=== PATIENT | male | born 1945 | race Caucasian/White ===

== ENCOUNTER 2018-04-02 12:16 | Emergency (ER) | payer OTHER ==
--- NOTE | 2018-04-02 12:44 | EDPHY ---
H & P Time Seen by Provider: 04/02/18 12:31 HPI/ROS: CHIEF COMPLAINT: slow speech and leaning to the left HISTORY OF PRESENT ILLNESS: Patient has had neck pain bilateral posterior occipital area for the last 3 months and he saw Orthopedics today. He was told that is he should go to physical therapy, but was sent here for evaluation of possible stroke symptoms. Though the spouse says that he has had slower speech since Friday night of this week, and moving more slowly than usual. He is leaning a little bit to the left. She describes slow mostly and not really slurred speech but he thinks his speech is normal now. Also a little bit of trouble with recent memory and naming objects. Denies headache or double vision, incontinence, visual symptoms, facial asymmetry. REVIEW OF SYSTEMS: Eye: no change in vision ENT: no sore throat Cardiac: no chest pain or syncope Pulmonary: no cough or SOB Abdomen: no vomiting, diarrhea, abdominal pain Musculoskeletal: HPI Skin: no rash Neuro: HPI Constitutional: no fever : no urinary symptoms A comprehensive 10 point review of systems is otherwise negative aside from elements mentioned in the history of present illness. PAST MEDICAL HISTORY: Includes depression just started Carbatrol 1 week ago, hypertension, enlarged prostate. Social history: Frequent alcohol but none in the last 24 hr General Appearance: Alert and conversant, cooperative. Eyes: No scleral icterus. Pupils equal reactive extraocular motion intact. ENT, Mouth: Normal mucous membranes. Respiratory: Normal respiratory effort, breath sounds equal, lungs are clear to auscultation. Cardiovascular: Regular rate and rhythm. Gastrointestinal: Abdomen is soft and non tender. Neurological: Alert, face symmetric, normal naming of pen and eyeglasses. Follows commands. Romberg negative. Normal strength in all 4 extremities, difficulty with tandem gait but can do it. Normal [id number] and no pronator drift. Speech is fluent on my evaluation. Skin: Warm and dry, no rashes. Musculoskeletal: No peripheral edema. Psychiatric: Not agitated. Emergency Department course/MDM: Plan for stroke workup with CT and CTA, carbamazepine level, EKG and screening labs. Not a stroke alert as last described known normal is more than 24 hr ago. 1435: Results discussed with patient and , I think the most reasonable explanation is mild carbamazepine toxicity. He took it once today and will not take further dosing without further discussing with his psychiatrist. Patient and his family feel comfortable being discharged, he does not feel that his symptoms are disabling or cause him to be a fall risk at home. Smoking Status: Never smoked Constitutional: Initial Vital Signs Temperature (C) 36.8 C 04/02/18 12:26 Heart Rate 78 04/02/18 12:26 Respiratory Rate 18 04/02/18 12:26 Blood Pressure 140/77 H 04/02/18 12:26 O2 Sat (%) 93 04/02/18 12:26 O2 Delivery Mode Room Air Allergies/Adverse Reactions: succinylcholine [Succinylcholine] Allergy (Verified 04/02/18 12:24) prolonged paralysis Home Medications: Medication Instructions Recorded Lisinopril [Zestril 5 mg (RX)] 5 mg PO HS 02/26/13 Olanzapine/Fluoxetine HCl [Symbyax 1 each PO HS 02/26/13 12-25 mg Capsule] Adderall 10 MG (*) 04/02/18 Aspirin 81mg (*) 04/02/18 Flomax 04/02/18 Nuvigil 04/02/18 Valium 04/02/18 Medical Decision Making - Diagnostics EKG Interpretation: 12-lead EKG interpreted by me; official reading is in trace master. My interpretation is sinus rhythm with right bundle branch block and left anterior fascicular block rate 72. Imaging Results: Imaging Impressions Head CT 04/02/18 13:33 Impression: 1. Mild atrophy. 2. No acute hemorrhage, hydrocephalus, or mass effect. 3. Cerebrovascular atherosclerosis. 4. No definite acute infarct. 5. Moderate to severe microvascular ischemic gliosis. 6. Consider MRI of the brain, if there is continued clinical concern. Findings and recommendations discussed with Emergency Department physician, HARIS CARRERA at 14:13 hour, 04/02/2018. Final report concurs with initial preliminary interpretation. Head CTA 04/02/18 13:33 Impression: 1. No carotid atherosclerotic disease. 2. No carotid or vertebral flow-limiting stenosis, occlusion or dissection. Measurement of carotid stenosis is based on the residual internal carotid diameter with [place] Symptomatic Carotid Endarterectomy Trial (NASCET) based stenosis levels. CT Angiogram of the Brain Clinical Indications: Confusion, speech difficulty. Technique: CT angiogram of the brain and neck was performed with the uneventful intravenous administration of 89 mL Isovue-370 contrast. Multiplanar reconstructions including 3D reconstructions performed and evaluated on Vitrea workstation in order to better evaluate the [place] vessels. Images were manipulated by the radiologist at the computer workstation. Dose reduction techniques were utilized. Findings: Major vessels of the [place] are adequately displayed, demonstrating no evidence of aneurysm, vascular malformation, flow-limiting stenosis, or occlusion. Bilateral cavernous internal carotid arteries and vertebrobasilar system demonstrates no evidence of flow-limiting stenosis, aneurysm, occlusion, or dissection. Superior sagittal sinus, transverse sinuses , and major veins demonstrate no evidence of intraluminal thrombi. Impression: Negative CT angiogram of the brain. Findings and recommendations discussed with Emergency Department physician, Dr. Haris Carrera at 1416 hours on April 02, 2018. Final report concurs with initial preliminary interpretation. Neck CTA 04/02/18 13:33 Impression: 1. No carotid atherosclerotic disease. 2. No carotid or vertebral flow-limiting stenosis, occlusion or dissection. Measurement of carotid stenosis is based on the residual internal carotid diameter with [place] Symptomatic Carotid Endarterectomy Trial (NASCET) based stenosis levels. CT Angiogram of the Brain Clinical Indications: Confusion, speech difficulty. Technique: CT angiogram of the brain and neck was performed with the uneventful intravenous administration of 89 mL Isovue-370 contrast. Multiplanar reconstructions including 3D reconstructions performed and evaluated on Vitrea workstation in order to better evaluate the [place] vessels. Images were manipulated by the radiologist at the computer workstation. Dose reduction techniques were utilized. Findings: Major vessels of the [place] are adequately displayed, demonstrating no evidence of aneurysm, vascular malformation, flow-limiting stenosis, or occlusion. Bilateral cavernous internal carotid arteries and vertebrobasilar system demonstrates no evidence of flow-limiting stenosis, aneurysm, occlusion, or dissection. Superior sagittal sinus, transverse sinuses , and major veins demonstrate no evidence of intraluminal thrombi. Impression: Negative CT angiogram of the brain. Findings and recommendations discussed with Emergency Department physician, Dr. Haris Carrera at 1416 hours on April 02, 2018. Final report concurs with initial preliminary interpretation. Imaging: Discussed imaging studies w/ order caller Radiologist Differential Diagnosis: Differential considered including but not limited to stroke, metabolic, medication toxicity, primary orthopedic problem. - Data Points Laboratory Results: Laboratory Results 04/02/18 13:02 04/02/18 13:02 04/02/18 04/02/18 04/02/18 13:21 13:17 13:02 WBC RBC Hgb POC Hgb 14.6 gm/dL gm/dL (13.7-17.5) Hct POC Hct 43 % % (40-51) MCV MCH MCHC RDW Plt Count MPV Neut % (Auto) Lymph % (Auto) [place] % (Auto) Eos % (Auto) Baso % (Auto) Nucleat RBC Rel Count Absolute Neuts (auto) Absolute Lymphs (auto) Absolute Monos (auto) Absolute Eos (auto) Absolute Basos (auto) Absolute Nucleated RBC Immature Gran % Immature Gran # PT INR POC Sodium 141 mEq/L mEq/L (135-145) Sodium 142 mEq/L mEq/L (135-145) POC Potassium 3.9 mEq/L mEq/L (3.3-5.0) Potassium 4.1 mEq/L mEq/L (3.3-5.0) POC Chloride 103 mEq/L mEq/L (97-110) Chloride 105 mEq/L mEq/L (97-110) Carbon Dioxide 26 mEq/l mEq/l (22-31) Anion Gap 11 mEq/L mEq/L (8-16) POC BUN 17 mg/dL mg/dL (7-23) BUN 17 mg/dL mg/dL (7-23) Creatinine 0.9 mg/dL mg/dL (0.7-1.3) POC Creatinine 1.0 mg/dL mg/dL (0.7-1.3) Estimated GFR > 60 Glucose 86 mg/dL mg/dL (70-100) POC Glucose 89 mg/dL mg/dL (70-100) Calcium 9.5 mg/dL mg/dL (8.5-10.4) POC Troponin I 0.01 ng/mL ng/mL (0.00-0.08) Carbamazepine 12.10 ug/mL H ug/mL (4.0-12.0) 04/02/18 04/02/18 13:02 13:02 WBC 7.17 10^3/uL 10^3/uL (3.80-9.50) RBC 4.89 10^6/uL 10^6/uL (4.40-6.38) Hgb 15.5 g/dL g/dL (13.7-17.5) POC Hgb Hct 43.5 % % (40.0-51.0) POC Hct MCV 89.0 fL fL (81.5-99.8) MCH 31.7 pg pg (27.9-34.1) MCHC 35.6 g/dL g/dL (32.4-36.7) RDW 12.7 % % (11.5-15.2) Plt Count 183 10^3/uL 10^3/uL (150-400) MPV 9.6 fL fL (8.7-11.7) Neut % (Auto) 73.4 % % (39.3-74.2) Lymph % (Auto) 18.4 % % (15.0-45.0) [place] % (Auto) 6.7 % % (4.5-13.0) Eos % (Auto) 0.8 % % (0.6-7.6) Baso % (Auto) 0.6 % % (0.3-1.7) Nucleat RBC Rel Count 0.0 % % (0.0-0.2) Absolute Neuts (auto) 5.26 10^3/uL 10^3/uL (1.70-6.50) Absolute Lymphs (auto) 1.32 10^3/uL 10^3/uL (1.00-3.00) Absolute Monos (auto) 0.48 10^3/uL 10^3/uL (0.30-0.80) Absolute Eos (auto) 0.06 10^3/uL 10^3/uL (0.03-0.40) Absolute Basos (auto) 0.04 10^3/uL 10^3/uL (0.02-0.10) Absolute Nucleated RBC 0.00 10^3/uL 10^3/uL (0-0.01) Immature Gran % 0.1 % % (0.0-1.1) Immature Gran # 0.01 10^3/uL 10^3/uL (0.00-0.10) PT 13.3 SEC SEC (12.0-15.0) INR 0.99 (0.83-1.16) POC Sodium Sodium POC Potassium Potassium POC Chloride Chloride Carbon Dioxide Anion Gap POC BUN BUN Creatinine POC Creatinine Estimated GFR Glucose POC Glucose Calcium POC Troponin I Carbamazepine Point of Care Test Results: Chemistry 04/02/18 04/02/18 13:21 13:17 POC Sodium 141 mEq/L mEq/L (135-145) POC Potassium 3.9 mEq/L mEq/L (3.3-5.0) POC Chloride 103 mEq/L mEq/L (97-110) POC BUN 17 mg/dL mg/dL (7-23) POC Creatinine 1.0 mg/dL mg/dL (0.7-1.3) POC Glucose 89 mg/dL mg/dL (70-100) POC Troponin I 0.01 ng/mL ng/mL (0.00-0.08) ISTAT H&H 04/02/18 13:21 POC Hgb 14.6 gm/dL gm/dL (13.7-17.5) POC Hct 43 % % (40-51) Departure - Departure Disposition: Home, Routine, Self-Care Clinical Impression: Carbamazepine toxicity Qualifiers: Encounter type: initial encounter Injury intent: accidental or unintentional Qualified Code(s): T42.1X1A - Poisoning by iminostilbenes, accidental ( unintentional), initial encounter Condition: Good Instructions: Carbamazepine (By mouth) Additional Instructions: Your carbamazepine level was 12.1 with normal therapeutic being 4-12. Negative CT scan imaging. Please contact your psychiatrist today to discuss further dosing. Do not take additional carbamazepine today. Referrals: Sebastián Woody MD [Primary Care Provider] - As per Instructions
--- NOTE | 2018-04-02 12:55 | CPEKG ---
Heart Rate: 72 RR Interval: 833 P-R Interval: 144 QRSD Interval: 136 QT Interval: 392 QTC Interval: 430 P Cornell: 19 QRS Cornell: -43 T Wave Cornell: 3 EKG Severity - ABNORMAL ECG - EKG Impression: SINUS RHYTHM EKG Impression: RBBB AND LAFB Electronically Signed By: Daniel Bowers 02-Apr-2018 13:14:40
[2018-04-02 13:19] LABS: PLATELET COUNT 183 10^3/uL (150-400)
[2018-04-02 13:24] LABS: INR 0.99 (0.83-1.16); PROTIME(PATIENT) 13.3 SEC (12.0-15.0)
[2018-04-02] MEDS ORDERED: IOPAMIDOL (ISOVUE 370) 100 ML BTL IV ONE (13:41)
[2018-04-02 15:10] VITALS: BP 150/78
== END 2018-04-02 15:10 | disposition home or self-care (01) ==
DX: R47.81 Slurred speech (principal); T42.1X1A Poisoning by iminostilbenes, accidental (unintentional), initial encounter; I10 Essential (primary) hypertension; Z79.82 Long term (current) use of aspirin
CPT/HCPCS: 82435-PO; 82565-PO; 82947-PO; 84132-PO; 84295-PO; 84484-PO; 84520-PO; 85014-PO; Q9967

== ENCOUNTER → 2018-07-05 | Outpatient (CLI) | payer OTHER | LOC: FIMAGING 10:02 | PROVIDERS: ATTEND Physician Assistant Surgical | DX: M51.36 Other intervertebral disc degeneration, lumbar region (principal); M51.26 Other intervertebral disc displacement, lumbar region; M50.320 Other cervical disc degeneration, mid-cervical region, unspecified level; M41.86 Other forms of scoliosis, lumbar region; M50.322 Other cervical disc degeneration at C5-C6 level; M43.12 Spondylolisthesis, cervical region ==

== ENCOUNTER 2018-07-12 10:31 | Emergency (ER) | payer OTHER ==
--- NOTE | 2018-07-12 11:01 | EDPHY ---
H & P Stated Complaint: Lower back pain Time Seen by Provider: 07/12/18 11:01 HPI/ROS: CHIEF COMPLAINT: Back pain with radiculopathy HISTORY OF PRESENT ILLNESS: The patient is a 72 y/o male with a history of a back surgery 10 years ago arriving with his complaining of progressive low back pain over the last 3-4 months that is severe today. He had surgery for L4- L5 stenosis 10 years ago and has been managing okay until the last few months. This has continued to progress and he saw his neurosurgeon, who scheduled outpatient MRIs at [facility] on 07/09/18. That lumbar MRI showed stenosis, degenerative disc disease, facet hypertrophy. Pain is now much worse in his left hip and thigh and radiating down his leg. It is aggravated with certain positions. He's having difficulty functioning and is not sleeping at night due to 10/10 pain. He denies paresthesias or weakness apart from reluctance to use his left leg due to the pain. No incontinence. He is taking 800mg ibuprofen daily and using OTC topical ointments of some sort with no improvement. He is looking for pain management until he is able to see his neurosurgeon on Friday. REVIEW OF SYSTEMS: A ten system review of systems was performed and is negative with the exception of the items mentioned in the HPI. Past medical history: Pericarditis, back pain Past surgical history: Back surgery for L4-L5 stenosis Family history: Noncontributory Social history: at bedside. 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 Nonsmoker. Neurosurgeon - Dr. Granados General Appearance: Alert. Vital signs reviewed. Eyes: Pupils equal and round, no conjunctival injection, no discharge. Anicteric. ENT, Mouth: Mucous membranes are moist, no oropharyngeal erythema or edema. Neck: No lymphadenopathy, supple. Respiratory: Lungs are clear to auscultation; no wheezes, rales, or rhonchi. Cardiovascular: Regular rate and rhythm; no murmur, rub, or gallop. Gastrointestinal: Abdomen is soft and nontender, no masses or organomegaly. Skin: Warm and dry, no rashes on exposed skin, normal color. Back: Nontender to palpation over the thoracolumbar spine. No CVAT. Extremities: No lower extremity edema, no calf tenderness or swelling. Neurological: Alert and oriented. Moving all four extremities spontaneously. Face symmetric. Strength is 5 over 5 bilaterally with testing of all major motor groups of both lower extremities. Sensation is intact to light touch over both lower extremities. Deep tendon reflexes are 2+ in the knees bilaterally and absent in the ankles bilaterally. Gait is normal. - Personal History Current Tetanus/Diphtheria Vaccine: Yes - Medical/Surgical History Hx Asthma: No Hx Chronic Respiratory Disease: No Hx Diabetes: No Hx Cardiac Disease: Yes Hx Renal Disease: No Hx Cirrhosis: No Hx Alcoholism: No Hx HIV/AIDS: No Hx Splenectomy or Spleen Trauma: No Other PMH: pericarditis - Social History Smoking Status: Never smoked Constitutional: Initial Vital Signs Temperature (C) 36.7 C 07/12/18 10:36 Heart Rate 89 07/12/18 10:36 Respiratory Rate 18 07/12/18 10:36 Blood Pressure 137/81 H 07/12/18 10:36 O2 Sat (%) 95 07/12/18 10:36 O2 Delivery Mode Room Air Allergies/Adverse Reactions: succinylcholine [Succinylcholine] Allergy (Verified 07/12/18 10:39) prolonged paralysis Home Medications: Medication Instructions Recorded Lisinopril [Zestril 5 mg (RX)] 5 mg PO HS 02/26/13 Olanzapine/Fluoxetine HCl [Symbyax 1 each PO HS 02/26/13 12-25 mg Capsule] Adderall 10 MG (*) 04/02/18 Aspirin 81mg (*) 04/02/18 Flomax 04/02/18 Nuvigil 04/02/18 Valium 04/02/18 Hydrocodone/APAP 5/325 [[place] 1 - 2 tab PO Q4 PRN #10 tab 07/12/18 5/325 (RX)] Medical Decision Making ED Course/Re-evaluation: This is a 72 y/o male with a history of spinal stenosis and prior L4-L5 surgery who presents with a 3-4-month history of progressive back pain that is now radiating through his hip and thigh. He is unable to sleep due to pain and is seeking pain control until he can see his neurosurgeon in 2 days. Recent MRI 3 days ago showed spinal stenosis and DJD. He has a normal neurologic exam. Do not suspect acute cauda equina syndrome or infection. No indication for further imaging at this time. Presentation is consistent with lumbar radiculopathy. Plan for pain management with 15mg IV Toradol and 0.5mg IV Dilaudid. Reassessed patient. He is feeling improved. He will be discharged with script for B[place]roft in addition to ibuprofen instructions. He has refused steroids due to a prior poor reaction to prednisone. He will attempt to move up his neurosurgery appointment to tomorrow for further evaluation. Return precautions discussed. He is comfortable with this plan. Differential Diagnosis: Back pain including but not limited to muscular pain, herniated disc, spine fracture, intra-abdominal causes and urinary tract infection. - Data Points Medications Given: Discontinued Medications Hydromorphone HCl (Dilaudid) 0.5 mg IVP EDNOW ONE Stop: 07/12/18 11:45 Last Admin: 07/12/18 12:00 Dose: 0.5 mg Ketorolac Tromethamine (Toradol) 15 mg IVP EDNOW ONE Stop: 07/12/18 11:45 Last Admin: 07/12/18 12:00 Dose: 15 mg Departure - Departure Disposition: Home, Routine, Self-Care Clinical Impression: Lumbar radiculopathy Condition: Good Instructions: Lumbar Radiculopathy (ED) Additional Instructions: 1. Follow up with your neurosurgeon in the next 1-2 days. I recommend calling tomorrow morning to see if you are able to move your appointment up. 2. Take 600mg ibuprofen every 8 hours for pain and inflammation for the next few days. 3. Use B[place]roft as prescribed as needed for severe pain. This medication can make you drowsy and constipated. Do not use prior to driving. 4. Okay to use your home Valium as prescribed if helpful for pain. 5. Return to the ED for weakness or numbness in your extremities or genitals, incontinence, or other worsening of condition. Referrals: Sebastián Woody MD [Primary Care Provider] - As per Instructions Jean Simpson MD [Medical Doctor] - As per Instructions Pablo Almonte PA [Physician Stockbroker] - As per Instructions Prescriptions: Hydrocodone/APAP 5/325 [B[place] 5/325 (RX)] 1 - 2 tab PO Q4 PRN #10 tab PRN Reason: pain Report Scribed for: Kandace Noel Report Scribed by: Xiomara Faustin Date of Report: 07/12/18 Time of Report: 11:44 Physician Review and Approval Statement: 07/12/18 11:01 Portions of this note were transcribed by the medical manager. I, Dr. Kandace Noel, personally performed the history, physical exam, and medical decision- making; and confirmed the accuracy of the information in the transcribed note.
[2018-07-12] MEDS ORDERED: HYDROmorphONE/DILAUDID 2 MG/ML INJ IVP ONE (11:44)
[2018-07-12] MEDS ORDERED: KETOROLAC 30 MG/1 ML SDV IVP ONE (11:44)
[2018-07-12 13:11] VITALS: BP 144/75
== END 2018-07-12 13:10 | disposition home or self-care (01) ==
DX: M54.16 Radiculopathy, lumbar region (principal); Z86.79 Personal history of other diseases of the circulatory system; Z87.39 Personal history of other diseases of the musculoskeletal system and connective tissue
CPT/HCPCS: 96374; J1170; J1885

== ENCOUNTER → 2018-09-14 | Outpatient (CLI) | payer OTHER | LOC: BMCIMAGING 14:19 | PROVIDERS: ATTEND Orthopaedic Surgery | DX: M19.011 Primary osteoarthritis, right shoulder (principal) ==

== ENCOUNTER → 2018-12-30 | Outpatient (CLI) | payer OTHER | LOC: BMCIMAGING 16:26 | PROVIDERS: ATTEND Family Medicine | DX: M19.211 Secondary osteoarthritis, right shoulder (principal); M25.551 Pain in right hip ==

== ENCOUNTER 2019-01-19 10:06 | Emergency (ER) | payer OTHER ==
--- NOTE | 2019-01-19 10:56 | EDPHY ---
H & P Time Seen by Provider: 01/19/19 10:55 HPI/ROS: Chief complaint. Abdominal pain HPI. 73-year-old male presents with 3 episodes of right upper quadrant abdominal pain that began during the night. No pain now. He felt that radiated to his right back. He had nausea but no vomiting or diarrhea. He had no chest pain or shortness of breath. Denies urinary symptoms. Previous appendectomy. No fever. No similar symptoms previously ROS 10 systems were reviewed and negative with the exception of the elements mentioned in the history of present illness Past Medical/Surgical History: Pericarditis, appendectomy Social History: , nonsmoker, no alcohol Smoking Status: Never smoked Physical Exam: General Appearance: Alert well-developed male mild distress vital signs are stable Eyes: Pupils equal and round no pallor or injection. ENT, Mouth: Mucous membranes are moist. Respiratory: There are no retractions, lungs are clear to auscultation. Cardiovascular: Regular rate and rhythm. Gastrointestinal: Abdomen is nontender pain particular attention to the right upper quadrant where he shows me where the pain was. Normal bowel sounds. No masses. Neurological: Awake and alert, sensory and motor exams grossly normal. Skin: Warm and dry, no rashes. Musculoskeletal: Neck is supple nontender. Extremities symmetrical, full range of motion. Psychiatric: Patient is oriented X 3, there is no agitation. Constitutional: Initial Vital Signs Temperature (C) 36.9 C 01/19/19 10:16 Heart Rate 81 01/19/19 10:16 Respiratory Rate 18 01/19/19 10:16 Blood Pressure 165/89 H 01/19/19 10:16 O2 Sat (%) 94 01/19/19 10:16 O2 Delivery Mode Room Air Allergies/Adverse Reactions: succinylcholine [Succinylcholine] Allergy (Verified 01/19/19 10:15) prolonged paralysis Home Medications: Medication Instructions Recorded Lisinopril [Zestril 5 mg (RX)] 5 mg PO HS 02/26/13 Olanzapine/Fluoxetine HCl [Symbyax 1 each PO HS 02/26/13 12-25 mg Capsule] Adderall 10 MG (*) 04/02/18 Aspirin 81mg (*) 04/02/18 Flomax 04/02/18 Valium 04/02/18 Hydrocodone/APAP 5/325 [[place] 1 - 2 tab PO Q4 PRN #10 tab 07/12/18 5/325 (RX)] Cymbalta 01/19/19 Pramipexole Di-HCl 01/19/19 Medical Decision Making - Diagnostics Imaging Results: Imaging Impressions Abdomen Ultrasound 01/19/19 11:18 Impression: 1. No cholelithiasis. 2. Common bile duct not well visualized. 3. Hepatic steatosis and hepatomegaly without definite focal lesions or ascites. 4. Pancreas predominantly obscured by bowel gas. Findings and recommendations discussed with Emergency Department physician, MEIR MARQUEZ at 12:17 hour, 01/19/2019. Final report concurs with initial preliminary interpretation. Abdomen CT 01/19/19 12:19 Impression: 1. No acute findings in the abdomen or pelvis. 2. Mild sigmoid diverticulosis without evidence of diverticulitis. 3. Additional findings as above. Findings discussed with Dr. Meir Marquez on January 19, 2019 at 1345 hours. fatty liver; no stones on ultrasound CT abdomen reviewed by me and discussed with Dr. Hernandez shows no acute findings Procedures: IV normal saline ED Course/Re-evaluation: Re-evaluation 2:00 p.m. Patient has no pain now. The patient and his and I discussed imaging and lab results. We discussed treatment plan including criteria for return importance of follow-up and further evaluation. They expressed understanding and agreement Differential Diagnosis: I considered causes of abdominal pain in the right upper quadrant including gallbladder disease, liver disease, pancreatitis. There is no evidence of pyelonephritis or kidney stone. No evidence for diverticulitis - Data Points Laboratory Results: Laboratory Results 01/19/19 12:20 01/19/19 12:20 01/19/19 01/19/19 01/19/19 13:06 12:20 12:20 WBC 6.98 10^3/uL 10^3/uL (3.80-9.50) RBC 5.08 10^6/uL 10^6/uL (4.40-6.38) Hgb 16.0 g/dL g/dL (13.7-17.5) Hct 44.5 % % (40.0-51.0) MCV 87.6 fL fL (81.5-99.8) MCH 31.5 pg pg (27.9-34.1) MCHC 36.0 g/dL g/dL (32.4-36.7) RDW 12.8 % % (11.5-15.2) Plt Count 184 10^3/uL 10^3/uL (150-400) MPV 9.5 fL fL (8.7-11.7) Neut % (Auto) 69.5 % % (39.3-74.2) Lymph % (Auto) 20.3 % % (15.0-45.0) [place] % (Auto) 7.6 % % (4.5-13.0) Eos % (Auto) 1.7 % % (0.6-7.6) Baso % (Auto) 0.6 % % (0.3-1.7) Nucleat RBC Rel Count 0.0 % % (0.0-0.2) Absolute Neuts (auto) 4.85 10^3/uL 10^3/uL (1.70-6.50) Absolute Lymphs (auto) 1.42 10^3/uL 10^3/uL (1.00-3.00) Absolute Monos (auto) 0.53 10^3/uL 10^3/uL (0.30-0.80) Absolute Eos (auto) 0.12 10^3/uL 10^3/uL (0.03-0.40) Absolute Basos (auto) 0.04 10^3/uL 10^3/uL (0.02-0.10) Absolute Nucleated RBC 0.00 10^3/uL 10^3/uL (0-0.01) Immature Gran % 0.3 % % (0.0-1.1) Immature Gran # 0.02 10^3/uL 10^3/uL (0.00-0.10) Sodium 139 mEq/L mEq/L (135-145) Potassium 4.2 mEq/L mEq/L (3.5-5.2) Chloride 105 mEq/L mEq/L (97-110) Carbon Dioxide 27 mEq/l mEq/l (22-31) Anion Gap 7 mEq/L mEq/L (6-14) BUN 19 mg/dL mg/dL (7-23) Creatinine 1.0 mg/dL mg/dL (0.7-1.3) Estimated GFR > 60 Glucose 89 mg/dL mg/dL (70-100) Calcium 9.6 mg/dL mg/dL (8.5-10.4) Total Bilirubin 1.1 mg/dL mg/dL (0.1-1.4) Conjugated Bilirubin 0.3 mg/dL mg/dL (0.0-0.5) Unconjugated Bilirubin 0.8 mg/dL mg/dL (0.0-1.1) AST 41 IU/L IU/L (17-59) ALT 47 IU/L IU/L (21-72) Alkaline Phosphatase 50 IU/L IU/L (38-126) Total Protein 6.5 g/dL g/dL (6.3-8.2) Albumin 4.2 g/dL g/dL (3.5-5.0) Lipase 15 IU/L L IU/L (23-300) Urine Color YELLOW Urine Appearance CLEAR Urine pH 9.0 H (5.0-7.5) Ur Specific [place] 1.016 (1.002-1.030) Urine Protein NEGATIVE (NEGATIVE) Urine Ketones TRACE H (NEGATIVE) Urine Blood NEGATIVE (NEGATIVE) Urine Nitrate NEGATIVE (NEGATIVE) Urine Bilirubin NEGATIVE (NEGATIVE) Urine Urobilinogen NEGATIVE EU EU (0.2-1.0) Ur Leukocyte Esterase NEGATIVE (NEGATIVE) Urine RBC 3-5 /hpf H /hpf (0-3) Urine WBC 1-3 /hpf /hpf (0-3) Ur Epithelial Cells NONE SEEN /lpf /lpf (NONE-1+) Urine Mucus TRACE /lpf /lpf (NONE-1+) Urine Glucose NEGATIVE (NEGATIVE) Medications Given: Discontinued Medications Sodium Chloride (Ns) 1,000 mls @ 0 mls/hr IV EDNOW ONE; Wide Open PRN Reason: Protocol Stop: 01/19/19 11:19 Last Admin: 01/19/19 12:20 Dose: 1,000 mls Departure - Departure Disposition: Home, Routine, Self-Care Clinical Impression: Abdominal pain Qualifiers: Abdominal location: right upper quadrant Qualified Code(s): R10.11 - Right upper quadrant pain Condition: Good Instructions: Acute Abdominal Pain (ED) Additional Instructions: Drink plenty of fluids and stay hydrated. Regular diet. Return for worsening pain, vomiting, fever Recheck in 1-2 days for any continuing symptoms Referrals: NONE *PRIMARY CARE P,. [Primary Care Provider] - As per Instructions
[2019-01-19] MEDS ORDERED: NS 1,000 ML IV ONE (11:18)
[2019-01-19 12:32] LABS: PLATELET COUNT 184 10^3/uL (150-400)
[2019-01-19] MEDS ORDERED: IOPAMIDOL (ISOVUE-300) 100 ML BTL ONE (12:57)
[2019-01-19 14:25] VITALS: BP 149/88
== END 2019-01-19 14:27 | disposition home or self-care (01) ==
DX: R10.11 Right upper quadrant pain (principal); E86.9 Volume depletion, unspecified
CPT/HCPCS: Q9967